=== PATIENT | male | born 1990 | race African-American/Black ===

== ENCOUNTER 2017-07-14 09:57 | Emergency (ER) | payer SELFPAY | END 2017-07-14 10:23 | disposition home or self-care (01) | LOC: NAV ERS 09:57 | DX: K13.0 Diseases of lips (principal); I10 Essential (primary) hypertension; Z79.899 Other long term (current) drug therapy | CPT/HCPCS: 99283 ==

== ENCOUNTER 2017-07-27 09:32 | Emergency (ER) | payer MEDICARE, OTHER, MEDICAID | END 2017-07-27 10:20 | disposition home or self-care (01) | LOC: NAV ERS 09:32 | DX: L03.221 Cellulitis of neck (principal); I10 Essential (primary) hypertension; Z79.899 Other long term (current) drug therapy | CPT/HCPCS: 99283 ==

== ENCOUNTER 2017-09-17 14:31 | Emergency (ER) | payer MEDICARE, OTHER, MEDICAID ==
[2017-09-17] MEDS ORDERED: Lidocaine 1% 20 ML MDV ONE (14:47)
[2017-09-17] MEDS ORDERED: Cephalexin 250 MG CAP ONE (15:20)
[2017-09-17] MEDS ORDERED: Sulfameth/Trimethoprim DS 800-160mg TAB ONE (15:20)
== END 2017-09-17 15:25 | disposition home or self-care (01) ==
LOC: NAV ERS 14:31
DX: J34.0 Abscess, furuncle and carbuncle of nose (principal); Z79.899 Other long term (current) drug therapy
CPT/HCPCS: 10060; J2001

== ENCOUNTER 2017-09-18 15:27 | Emergency (ER) | payer MEDICARE, OTHER, MEDICAID ==
[2017-09-18] MEDS ORDERED: Sodium Chloride 0.9% 1,000 ML ONE (15:43)
[2017-09-18] MEDS ORDERED: Sodium Chloride 0.9% 500 ML ONE (15:47)
[2017-09-18] MEDS ORDERED: Fentanyl 100 MCG/2 ML VIAL ONE (15:58)
[2017-09-18 16:14] LABS: ALT (SGPT) 47 U/L (8-55); AST (SGOT) 36 U/L (5-34); Albumin 4.6 g/dL (3.5-5.0); Alkaline Phosphatase 83 U/L (40-150); Anion Gap 19 mmol/L (10-20); BUN (Urea Nitrogen) 11 mg/dL (8.9-20.6); Bilirubin, Total 1.1 mg/dL (0.2-1.2); Calc. Creatinine Clearance 0 mL/min (70-130); Calcium 10.6 mg/dL (7.8-10.44); Carbon Dioxide 28 mmol/L (22-29); Chloride 95 mmol/L (98-107); Estimated GFR-MDRD 66; Globulin 5.2 g/dL (2.4-3.5); Glucose 101 mg/dL (70-105); Potassium 3.4 mmol/L (3.5-5.1); Protein, Total 9.8 g/dL (6.0-8.3); Sodium 139 mmol/L (136-145)
[2017-09-18 16:21] LABS: #Basophils 0.2 thou/uL (0.0-0.2); #Lymphocytes 2.3 thou/uL (1.20-3.40); #Neutrophils 6.4 thou/uL (1.40-6.50); %Basophils 1.7 % (0.0-1.0); %Eosinophils 0.4 % (0.0-10.0); %Lymphocytes 23.1 % (21.0-51.0); %Monocytes 10.4 % (0.0-10.0); %Neutrophils 64.4 % (42.0-75.0); Hemoglobin 15.2 g/dL (14.0-18.0); Mean Corpuscular HGB CONC 32.1 g/dL (32.0-36.0); Mean Corpuscular Hemoglobin 24.6 pg (27.0-31.0); Mean Corpuscular Volume 76.6 fl (80.0-94.0); Platelet Count 314 thou/uL (130-400); RBC Distribution Width 13.5 % (11.5-14.5); Red Blood Cell (RBC) Count 6.17 mill/uL (4.70-6.10)
[2017-09-18 16:38] LABS: MDiff Complete? YES; Microcytosis SLIGHT = 6-15 cells (100X) (0-5/hpf); PLT Morphology Comment Appears Adequate
--- NOTE | 2017-09-18 17:00 | CT ---
CT OF THE FACE WITHOUT CONTRAST: INDICATION: History of swelling to the face yesterday. COMPARISON: None. FINDINGS: No air fluid level is evident. No appreciable mucosal thickening is noted. The osteomeatal units ar e clear. Orbital rims are intact. The nasal bone is intact. The osseous nasal septum is intact. T here is a leftward projecting osseous septal spur. The pterygoid plates are intact. The zygomatic a rches are intact. Visualized mandible appears intact. There is a dental nathalie involving the posteri or right mandibular molar. Soft tissues of the face appear within normal limits. The visualized orb its are intact. Visualized intracranial contents are unremarkable. Visualized senior facilities manager space appe ars within normal limits. Visualized parotid and submandibular glands appear within normal limits. There are some shotty-appearing lymph nodes seen within the submandibular regions bilaterally. The v isualized craniocervical junction appears within normal limits. IMPRESSION: No acute abnormality. POS: [facility]
[2017-09-18] MEDS ORDERED: Clindamycin 300 MG/2 ML VIAL ONE (17:17)
[2017-09-18] MEDS ORDERED: Sodium Chloride 0.9% 100 ML ONE (17:18)
[2017-09-18] MEDS ORDERED: HYDROcodone/Acetaminophen 10/325 mg Tablet ONE (18:07)
== END 2017-09-18 18:15 | disposition home or self-care (01) ==
LOC: NAV ERS 15:27
DX: L03.211 Cellulitis of face (principal); I10 Essential (primary) hypertension; Z79.899 Other long term (current) drug therapy
CPT/HCPCS: 70486; 80053; 83605; 85025; 87040; 96365; 96367; 96375; J3010; J3370; J3490; J7050